=== PATIENT | male | born 1970 | race Caucasian/White ===

== ENCOUNTER 2019-04-17 06:53 | Outpatient (CLI) | payer OTHER | END 2019-04-17 07:21 | disposition home or self-care (01) | LOC: LABPAT 06:53 | PROVIDERS: ATTEND Surgery | DX: Z53.9 Procedure and treatment not carried out, unspecified reason (principal) | CPT/HCPCS: 36415; 86850; 86900; 86901 ==

== ENCOUNTER 2019-04-24 11:59 | Day surgery (SDC) | payer OTHER ==
[2019-04-22 16:39] VITALS: BMI 30.4
[~2019-04-24 11:59] MED LIST: DEXAMETHASONE SOD PHOSPHATE 10 MG/ML 1 ML VIAL IV ONE; HEPARIN SODIUM,PORCINE 5,000 UNIT/ML 1 ML VIAL SQ ONE; LIDOCAINE 1% 20 ML VIAL (10MG/ML) FOR IV START INTRADERMA PRN; MIDAZOLAM 2 MG/2 ML VIAL IV PRN; SCOPOLAMINE 1.5MG/72HR PATCH TRANSDERM ONE
[2019-04-24] MEDS: LACTATED RINGERS 1,000 ML IV SCH ×2 (12:46→13:18)
[2019-04-24] MEDS: ONDANSETRON 4 MG/2 ML VIAL IVP ONE ×2 (13:09→15:14)
--- NOTE | 2019-04-24 13:13 | P.GSHP ---
History of Present Illness H&P Date: 04/24/19 Chief Complaint: Umbilical and ventral hernia This a 49-year-old male has developed an umbilical and ventral hernia. Patient rents today for laparoscopic robotic-assisted repair. Past Medical History Past Medical History: GERD/Reflux Additional Past Medical History / Comment(s): Umbilical, ventral hernias. 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 Lt Shoulder surg. Past Anesthesia/Blood Transfusion Reactions: Postoperative Nausea & Vomiting (PONV) Smoking Status: Never smoker - Past Family History Father Family Medical History: Cancer Additional Family Medical History / Comment(s): Throat CA Medications and Allergies Home Medications Medication Instructions Recorded Confirmed Type Multivitamin [Multivitamins Adult 2 each PO DAILY 04/22/19 04/24/19 History Gummies] Allergies Allergy/AdvReac Type Severity Reaction Status Date / Time No Known Allergies Allergy Verified 04/24/19 13:00 Surgical - Exam Vital Signs Temp Pulse Resp BP Pulse Ox 98.9 F 67 18 140/92 96 04/24/19 12:34 04/24/19 12:34 04/24/19 12:34 04/24/19 12:34 04/24/19 12:34 - General well developed, well nourished, no distress - Eyes PERRL - ENT normal pinna - Neck no masses - Respiratory normal expansion - Cardiovascular Rhythm: regular - Abdomen Abdomen: soft, non tender Hernia: umbilical (3 cm umbilical hernia, 3 cm supraumbilical ventral hernia) Assessment and Plan Assessment: Umbilical and ventral hernia. We'll perform laparoscopic robotic-assisted repair.
[2019-04-24 13:16] LABS: Basophils % (A) 0 %; Eosinophils # (A) 0.2 k/uL (0-0.7); Eosinophils % (A) 5 %; Lymphocytes # (A) 1.9 k/uL (1.0-4.8); Lymphocytes % (A) 41 %; MCH 33.2 pg (25.0-35.0); MCHC 35.9 g/dL (31.0-37.0); MCV 92.6 fL (80.0-100.0); Mean Platelet Volume 6.9; Monocytes # (A) 0.3 k/uL (0-1.0); Monocytes % (A) 6 %; Neutrophils # (A) 2.1 k/uL (1.3-7.7); Neutrophils % (A) 46 %; Platelet Count 199 k/uL (150-450); RBC 4.21 m/uL (4.30-5.90); RDW 12.6 % (11.5-15.5); WBC 4.6 k/uL (3.8-10.6)
[2019-04-24] MEDS ORDERED: LIDOCAINE 1% INJ 10MG/ML (20 ML MDV) ONE (13:16)
[2019-04-24] MEDS ORDERED: MIDAZOLAM 2 MG/2 ML VIAL ONE (13:16)
[2019-04-24] MEDS ORDERED: ROCURONIUM BROMIDE 10 MG/ML 10 ML VIAL IV ONE (13:16)
[2019-04-24] MEDS ORDERED: PROPOFOL 10 MG/ML 20 ML VIAL IV ONE (13:16)
[2019-04-24] MEDS ORDERED: .MORPHINE SULFATE (INJ) 10 MG/ML SYRINGE ONE (13:16)
[2019-04-24] MEDS ORDERED: NEOSTIGMINE 1 MG/ML 10 ML VIAL ONE (13:16)
[2019-04-24] MEDS ORDERED: fentaNYL (PF) 50 MCG/ML 2 ML AMP ONE (13:16)
[2019-04-24] MEDS ORDERED: KETAMINE 10 MG/ML 20 ML VIAL ONE (13:16)
[2019-04-24] MEDS ORDERED: SUCCINYLCHOLINE CHLORIDE 100 MG/5 ML SYR IV ONE (13:16)
[2019-04-24] MEDS ORDERED: KETOROLAC 30 MG/ML 1 ML VIAL ONE (13:16)
[2019-04-24] MEDS ORDERED: GLYCOPYRROLATE 0.2 MG/ML 2 ML VIAL ONE (13:16)
[2019-04-24] MEDS ORDERED: BUPIVACAINE (PF) 0.25% 30 ML VIAL SQ ONE (13:59)
[2019-04-24] MEDS ORDERED: LACTATED RINGERS 1,000 ML IV ONE ×2 (14:20→16:36)
[2019-04-24 14:50] VITALS: TEMP 97.5
--- NOTE | 2019-04-24 14:50 | P.OP ---
Date of Procedure: 04/24/19 Preoperative Diagnosis: Ventral hernia Umbilical hernia Postoperative Diagnosis: Incarcerated umbilical hernia Incarcerated ventral hernia Procedure(s) Performed: Laparoscopic robotic-assisted repair of incarcerated umbilical hernia Laparoscopic robotic-assisted repair of incarcerated ventral hernia Partial omentectomy Anesthesia: TITO Surgeon: Adam Sinclair Estimated Blood Loss (ml): 5 Pathology: other (Omentum) Condition: stable Disposition: PACU Description of Procedure: The patient was placed on the operating table in the supine position. He received general anesthesia. His abdomen was prepped and draped usual fashion. Using a 5 mm optical trocar under direct visualization the peritoneal cavity was entered in the left upper quadrant. The abdomen was then insufflated. The laparoscope was placed back into the perineal cavity. Next a 8 mm robotic tro car was placed in the left lower quadrant and a 12 mm robotic trocar was placed in the left lateral position. The original 5 mm trocar was exchanged for a 8 mm robotic trocar. The patient's placed in the left side up position. And the patient was undocked the robot. The umbilical hernia was visualized. Using hook cautery the peritoneum over the umbilical hernia was excised. The incarcerated fat/omentum was dissected free from the hernia and sent to pathology. Approximately 3 cm above this was another ventral hernia with incarcerated omentum. This was dissected free with the hook cautery. The omentum was sent to pathology. The fascial opening was repaired using 0V LOC suture. Next a piece of 10 x [address] mesh was placed into the. Cavity and secured with 2 OV lo ck suture. The patient was undocked the robot. The needles were retrieved. The fascia of the 12 mm trocar site was closed with 0 Ethibond suture. Skin was closed interrupted 3-0 Monocryl suture. Dermabond dressings was applied. Patient top procedure well and was sent to recovery room stable condition.
[2019-04-24] MEDS: HYDROmorphone 0.5 MG/0.5 ML SYRINGE IVP PRN ×4 (15:08→15:25)
[2019-04-24 15:52] VITALS: RESP 16
[2019-04-24] MEDS ORDERED: HYDROcodone/APAP 5-325MG 1 EACH TAB PO ONE (16:21)
[2019-04-24 17:22] VITALS: BP 127/80; PULSE 81
== END 2019-04-24 17:11 | disposition home or self-care (01) ==
LOC: OR 11:59
PROVIDERS: ATTEND Surgery
DX: K42.0 Umbilical hernia with obstruction, without gangrene (principal); K43.6 Other and unspecified ventral hernia with obstruction, without gangrene; K21.9 Gastro-esophageal reflux disease without esophagitis; Z98.890 Other specified postprocedural states; Z80.8 Family history of malignant neoplasm of other organs or systems
CPT/HCPCS: 49653 ×2; 86900; 86901; 85025; 86850; 88302; 36415; C1781; J2250; J1644; J1100; J2710; J2270; J0690; J2405; J2001; J3010; J1885; J0330; J2704; J1170